=== PATIENT | female | born 1975 | race Caucasian/White ===

== ENCOUNTER 2022-05-09 10:09 | Emergency (ER) | payer BC ==
[~2022-05-09] VITALS: Ht 165.1 cm; Wt 160.4 kg
[2022-05-09] MEDS ORDERED: ONDANSETRON ODT4 MG PO (13:52)
[2022-05-09] MEDS ORDERED: CIPRO500 MG PO (13:52)
== END 2022-05-09 14:03 | disposition home or self-care (01) ==
LOC: ED 10:09
DX: N12 Tubulo-interstitial nephritis, not specified as acute or chronic (principal)
CPT/HCPCS: 36415; 74176; 80053; 81001; 84703; 85025; 96365; 96375; 99284-25; J0696; J1885; J2405; J7030

== ENCOUNTER 2024-02-16 14:22 | Emergency (ER) | payer BC ==
[~2024-02-16] VITALS: Ht 165.1 cm; Wt 162.5 kg
[~2024-02-16 14:22] MED LIST: CIPRO500 MG PO; ONDANSETRON ODT4 MG PO
[2024-02-16] MEDS ORDERED: ASPIRIN 81 MG CHEW PO ONE (14:30)
[2024-02-16] MEDS ORDERED: NITROGLYCERIN 0.4 MG SUBL SL PRN (14:30)
[2024-02-16] MEDS ORDERED: MULTIVITAMIN1 EACH PO (14:33)
[2024-02-16 14:38] LABS: BASOPHILS 0.9 % (0-2); EOSINOPHILS 3.7 % (0-6); HEMOGLOBIN 13.2 g/dL (12.0-18.0); LYMPHOCYTES 23.5 % (24-44); MCH 30.3 (27-36); MCHC 33.8 g/dl (30-36); MCV 89.4 fl (81-99); MONOCYTES 7.5 % (0-12); NEUTROPHILS 64.4 % (39-80); PLATELET COUNT 349 K/uL (140-440); RBC 4.36 M/ul (4.3-5.7); RDW 14.1 (10.5-15.0)
[2024-02-16 14:50] LABS: INR 1.03 (0.80-1.30); PROTIME 13.1 Sec (11.2-14.2)
[2024-02-16 15:00] LABS: ALBUMIN 3.1 g/dL (3.4-5.0); ALBUMIN/GLOBULIN RATIO 0.63 (1.1-2.4); ANION GAP 14.6 (7-21); BILIRUBIN, TOTAL 0.4 ng/dL (0.2-1.0); BUN/CREATININE RATIO 13.75 (6.0-28.6); CALCIUM 8.7 mg/dL (8.5-10.1); CREATININE, SERUM 0.8 mg/dL (0.55-1.02); POTASSIUM 3.6 mmol/L (3.5-5.1)
[2024-02-16 15:10] LABS: BILIRUBIN, URINE NEGATIVE (negative); BLOOD/HGB, URINE LARGE (Negative); KETONE, URINE NEGATIVE (Negative); LEUK ESTERASE, URINE NEGATIVE (negative); NITRITE, URINE NEGATIVE (negative)
[2024-02-16 15:16] LABS: BACTERIA, URINE 1+ /hpf (negative); CASTS, URINE NONE SEEN \\lpf; COLLECTION TYPE, URINE CLEAN CATCH; CRYSTALS, URINE NONE SEEN (0-1+); REFLEX CULTURE, URINE No (No); WHITE BLOOD CELLS, URINE 0-1 /HPF (0-5)
[2024-02-16 15:26] LABS: INFLUENZA B NAA NEGATIVE (NEGATIVE); RESPIRATORY SYNCYTIAL VIR NAA NEGATIVE (NEGATIVE)
[2024-02-16 17:40] VITALS: BP 139/87
--- NOTE | 2024-02-16 20:23 | EKG ---
[facility] [address] [facility] [place] [address] Signed Normal sinus rhythm Minimal voltage criteria for LVH, may be normal variant ( R in aVL ) Nonspecific ST abnormality Abnormal ECG No previous ECGs available Confirmed by Marilyn Valentino MD ([id number]) on 02/16/2024 8:23:17 PM Electronically Signed By: MARILYN VALENTINO MD 02/16/242022 PATIENT NAME: DEANGELO YE Electrocardiogram DATE OF : 77 PHYSICIAN: MRAILYN VALENTINO MD REPORT #: [id number] REPORT IS CONFIDENTIAL AND NOT TO BE RELEASED WITHOUT AUTHORIZATION
== END 2024-02-16 17:40 | disposition home or self-care (01) ==
LOC: ED 14:22
PROVIDERS: Emergency Medicine
DX: R07.9 Chest pain, unspecified (principal); R55 Syncope and collapse; R51.9 Headache, unspecified; E66.01 Morbid (severe) obesity due to excess calories
CPT/HCPCS: 36415; 70450; 71045; 80053; 81001; 83735; 83880; 84484; 84703; 85025; 85379; 85610; 85730; 87502; 93005; 93010; 99285-25; U0002

== ENCOUNTER 2024-04-29 14:14 | Emergency (ER) | payer BC ==
[~2024-04-29] VITALS: Ht 165.1 cm; Wt 158.1 kg
[~2024-04-29 14:14] MED LIST changes: +MULTIVITAMIN1 EACH PO
[2024-04-29] MEDS ORDERED: ondansetron HCL 4 MG TAB PO ONE (15:30)
[2024-04-29 16:00] LABS: CORONAVIRUS COVID-19 AG NEGATIVE (NEGATIVE); INFLUENZA A AG NEGATIVE (NEGATIVE); INFLUENZA B AG NEGATIVE (NEGATIVE)
[2024-04-29] MEDS ORDERED: SODIUM CHLORIDE 0.9% 1,000 ML IV PRN (16:45)
[2024-04-29] MEDS ORDERED: ondansetron HCL 4 MG/2 ML VIAL IV ONE (16:45)
[2024-04-29] MEDS ORDERED: PROMETHAZINE HC25 M1 PO (17:39)
[2024-04-29] MEDS ORDERED: IBU600 MG PO (17:39)
[2024-04-29 17:59] VITALS: BP 131/86
== END 2024-04-29 18:02 | disposition home or self-care (01) ==
LOC: ED 14:14
PROVIDERS: Emergency Medicine
DX: R11.2 Nausea with vomiting, unspecified (principal)
CPT/HCPCS: 36415; 96360; 99284-25; A9270; J7030